=== PATIENT | female | born 1970 | race Asian ===

== ENCOUNTER → 2024-10-15 | Outpatient (CLI) | payer BC, SELFPAY ==
--- NOTE | 2024-10-15 11:00 | XR_ITS ---
Examination: Breast ultrasound, unilateral, left complete Date and time of exam: October 15, 2024 1056 hours INDICATIONS: Mammogram 02/14/2024 persistent asymmetry lower outer quadrant left breast Technique: Real-time lobato scale ultrasonographic imaging performed left breast including all 4 quadrants as well as nipple retroareolar and axillary region. Findings: 12:00 nodule circumscribed 5 x 5 mm 12:00 cyst 4 x 4 millimeter 4:00 nodule circumscribed 7 x 6 mm IMPRESSION: BI-RADS Category 3: Probably benign findings Recommend 1 additional 6 month left breast sonogram follow-up to document stability of nodules described above
--- NOTE | 2024-10-15 11:30 | XR_ITS ---
Examination: Diagnostic digital mammography, unilateral, left Computer aided detection 3-D breast Tomosynthesis, unilateral Date and time of exam: October 15, 2024 1107 hours INDICATIONS: 20 mm focal asymmetry lower left breast MLO view on mammogram January 14, 2024 Technique: Nonmagnified MLO, CC views of the left breast have been obtained, reconstructed from 3-D Tomosynthesis images. R2 computer aided detection program utilized for evaluation of suspicious masses and/or abnormal calcifications. 3-D Tomosynthesis images obtained. Findings: The breast is heterogeneously dense, which may obscure small masses Focal asymmetry remains nipple level left breast on the CC view posterior depth Impression: BI-RADS category 3: Probably benign findings Bilateral six-month mammography follow-up is needed
== END | disposition home or self-care (01) ==
PROVIDERS: PCP Registered Nurse Community Health; Referring Provider Registered Nurse Community Health; Visit Provider Registered Nurse Community Health
DX: R92.332 Mammographic heterogeneous density, left breast (principal); N63.25 Unspecified lump in the left breast, overlapping quadrants; N63.23 Unspecified lump in the left breast, lower outer quadrant
CPT/HCPCS: 76641; 77061; 77065; G0279